=== PATIENT | male | born 1985 | race Caucasian/White ===

== ENCOUNTER 2024-02-27 13:29 | Outpatient (REF) | payer BC, SELFPAY ==
[2024-02-27 20:18] LABS: ALT 31 U/L (16-63); AST 19 U/L (15-37); Albumin 4.4 g/dL (3.4-5.0); Alkaline Phosphatase 72 U/L (46-116); Anion Gap 8.3 mmol/L (3-11); BUN 22 mg/dL (7-18); Bilirubin, Total 0.8 mg/dL (0.2-1.0); CO2 25.7 mmol/L (21.0-32.0); Calcium 9.2 mg/dL (8.5-10.1); Calculated LDL 122 mg/dL (<100); Chloride 104 mmol/L (98-107); Cholesterol 191 mg/dL (<200); Estimated GFR 99.41 (mL/min/1.73m2); Glucose 92 mg/dL (74-106); HDL Cholesterol 55 mg/dL (40-60); Potassium 4.5 mmol/L (3.5-5.1); Sodium 138 mmol/L (136-145); Total Protein 7.7 g/dL (6.4-8.2); Triglyceride 70 mg/dL (<150)
[2024-02-27 20:34] LABS: Hemoglobin A1C 5.5 % (<5.7)
[2024-02-29 10:09] LABS: Hepatitis B Surface Ag Negative (Negative)
[2024-02-29 10:23] LABS: Syphilis Serology (RPR) Negative (Negative)
[2024-02-29 10:52] LABS: Hepatitis C Ab w Rflx HCV PCR Negative (Negative)
[2024-02-29 11:14] LABS: HIV-1/2 Ag & Ab Screen Negative (Negative)
== END 2024-02-27 13:30 | disposition home or self-care (01) ==
LOC: NCHCN 13:29
PROVIDERS: Visit Provider Physician Assistant
DX: Z13.6 Encounter for screening for cardiovascular disorders (principal); Z13.1 Encounter for screening for diabetes mellitus; Z11.3 Encounter for screening for infections with a predominantly sexual mode of transmission
CPT/HCPCS: 80053; 80061; 86803; 87340; 87389; 87491; 87591; 83036; 86592

== ENCOUNTER 2024-03-01 09:13 | Outpatient (REF) | payer BC, SELFPAY ==
[2024-03-04 15:30] LABS: Chlamydia Result Negative (Negative); GC Result Negative (Negative)
== END 2024-03-01 09:14 | disposition home or self-care (01) ==
LOC: NCHCN 09:13
PROVIDERS: Visit Provider Physician Assistant
DX: Z11.3 Encounter for screening for infections with a predominantly sexual mode of transmission (principal)
CPT/HCPCS: 87491; 87591

== ENCOUNTER 2024-03-11 18:15 | Outpatient (REF) | payer BC, SELFPAY ==
[2024-03-11 20:15] LABS: Bilirubin Negative (Negative); Blood Trace-lysed (Negative); Clarity Clear (Clear); Glucose Negative (Negative); Ketones Negative (Negative); Leukocyte Esterase Negative (Negative); Nitrite Negative (Negative); Urobilinogen 0.2 mg/dL (Up to 0.2); pH 6.5 (5-8)
[2024-03-11 20:27] LABS: Epithelial Cells Rare HPF (Negative); RBC 0-2 HPF (0-2); WBC Negative HPF (0-5)
[2024-03-11 20:28] LABS: Bacteria Rare HPF (Negative); C & S Indicated? C&S Done As Ordered; Casts Negative LPF (Negative); Crystals Negative HPF (Negative); Mucus Negative (Negative)
== END 2024-03-11 18:16 | disposition home or self-care (01) ==
LOC: NCHCN 18:15
PROVIDERS: Visit Provider Nurse Practitioner Family
DX: R35.0 Frequency of micturition (principal)
CPT/HCPCS: 81003; 81015; 87086